=== PATIENT | female | born 1970 | race Caucasian/White ===

== ENCOUNTER 2017-11-29 11:17 | Emergency (ER) | payer OTHER ==
[2017-11-29 11:29] VITALS: BMI 43.0
[2017-11-29 11:33] VITALS: RESP 18
[2017-11-29 12:49] LABS: HCG,QUALITATIVE URINE NEGATIVE (NEGATIVE)
[2017-11-29 13:00] LABS: SQUAMOUS EPITHIAL 10 /hpf (0-5); URINE BILIRUBIN NEGATIVE (NEGATIVE); URINE BLOOD 1+ (NEGATIVE); URINE CLARITY Clear (Clear); URINE COLOR Straw (YELLOW); URINE GLUCOSE (UA) NORMAL (Normal); URINE LEUKOCYTE ESTERASE NEG Leu/uL (Negative); URINE PROTEIN NEGATIVE (NEGATIVE); URINE UROBILINOGEN NORMAL mg/dL (0.2-1.0)
[2017-11-29] MEDS ORDERED: DiphenhydrAMINE 50 mg/ml Inj IVP STA (13:07)
[2017-11-29] MEDS ORDERED: Sodium Chloride 0.9% 1,000 ML IV STA (13:07)
--- NOTE | 2017-11-29 13:14 | C.PDOC ---
History Of Present Illness 46 y/o F p/w headache x 14 hours, bitemperal, like pounding, associated with N/ V x 8, nonbloody. Reports photophobia as well. States has had headaches like these in the past as well but has never followed up. She also reports L arm pain /numbness that has been intermittent x 1 month. She states this is not why she came to hospital today but decided to mention it. Denies trauma, injury, fever, stiff neck. Time Seen by Provider: 11/29/17 12:54 Chief Complaint (Nursing): GI Problem Past Medical History Vital Signs: Last Vital Signs Temp 98.8 F 11/29/17 15:09 Pulse 69 11/29/17 15:09 Resp 18 11/29/17 15:09 BP 95/57 L 11/29/17 15:09 Pulse Ox 99 11/29/17 15:09 - Medical History PMH: Depression, HTN Family History: States: Unknown Family Hx - Social History Hx Tobacco Use: No Hx Alcohol Use: No Hx Substance Use: No - Immunization History Hx Tetanus Toxoid Vaccination: No Hx Influenza Vaccination: No Hx Pneumococcal Vaccination: No Review Of Systems Except As Marked, All Systems Reviewed And Found Negative. Constitutional: Negative for: Fever Cardiovascular: Negative for: Chest Pain Physical Exam - Physical Exam Additional Physical Exam Comments: Gen: NAD Head: NC/AT Eyes: PERRL, EOMI ENT: MMM Neck: No rigidity Chest: no tenderness CV: Regular rate Lungs: CTA b/l Abd: Soft, NT Skin: No rash Extremities: No tenderness or swelling Neuro: Alert, no focal deficit. Motor 5/5 x 4. Sensation to light touch intact bilaterally. ED Course And Treatment O2 Sat by Pulse Oximetry: 98 Medical Decision Making Medical Decision Making: Likely primary headache, migraine likely, treat symptomatically and reassess. CT Head. Arm symptoms consistent with cervical radiculopathy. IMPRESSION: Normal CT of Head. Patient states she feels much better after treatment. Will discharge home, f/u PMD for cervical radiculopathy and neurology for headaches. Instructed to return for worsening pain, fever, stiff neck, chest pain, or any other problem. Disposition - Disposition Referrals: at [facility] [Outside] Disposition: HOME/ ROUTINE Disposition Time: 15:58 Condition: STABLE Prescriptions: Acetaminophen [Tylenol 325mg tab] 2 tab PO Q4H #30 tab DiphenhydrAMINE [Benadryl] 2 cap PO Q8 #25 cap Famotidine [Pepcid] 1 tab PO BID #14 tab Ibuprofen [Motrin] 600 mg PO Q6 #25 tab Instructions: Headache, Adult (DC), Migraine Headaches in Adults, Radiculopathy Forms: [facility] (Surinamese) - Clinical Impression Clinical Impression: Headache
[2017-11-29] MEDS ORDERED: Sodium Chloride 0.9% 1,000 ML ONE (13:57)
--- NOTE | 2017-11-29 14:18 | CT ---
PROCEDURE: CT HEAD WITHOUT CONTRAST. HISTORY: headache, vomiting COMPARISON: None available. TECHNIQUE: Axial computed tomography images were obtained through the head/brain without intravenous contrast. Radiation dose: Total exam DLP = 1094 mGy-cm. This CT exam was performed using one or more of the following dose reduction techniques: Automated exposure control, adjustment of the mA and/or kV according to patient size, and/or use of iterative reconstruction technique. FINDINGS: HEMORRHAGE: No intracranial hemorrhage. BRAIN: No mass effect or edema. No atrophy or chronic microvascular ischemic changes. VENTRICLES: Unremarkable. No hydrocephalus. CALVARIUM: Unremarkable. PARANASAL SINUSES: Unremarkable as visualized. No significant inflammatory changes. MASTOID AIR CELLS: Unremarkable as visualized. No inflammatory changes. OTHER FINDINGS: None. IMPRESSION: Normal CT of the Head.
[2017-11-29] MEDS ORDERED: DiphenhydrAMINE 50 mg/ml Inj ONE (14:36)
[2017-11-29 16:31] VITALS: BP 99/64; PULSE 63; TEMP 98.1; O2SAT 99
== END 2017-11-29 16:25 | disposition home or self-care (01) ==
LOC: C.ER 11:17
DX: R51 Headache (principal)
CPT/HCPCS: 70450; 81001; 84703; 96374; 96375; 99285; J1200; J1885; J2765; J7040

== ENCOUNTER 2018-03-14 18:01 | Emergency (ER) | payer OTHER ==
[2018-03-14 18:02] VITALS: BMI 43.0
[2018-03-14 18:21] VITALS: BP 101/64; PULSE 71; RESP 20; TEMP 98; O2SAT 98
--- NOTE | 2018-03-14 20:03 | C.PDOC ---
History Of Present Illness 47 y/o female with history of high blood pressure presents to ED c/o pruritic rash on right arm that she first noticed 2 days ago. Patient denies fevers, numbness weakness, tingling. Time Seen by Provider: 03/14/18 19:03 Chief Complaint (Nursing): Abnormal Skin Integrity History Per: Patient History/Exam Limitations: no limitations Onset/Duration Of Symptoms: Days Current Symptoms Are (Timing): Still Present Quality Of Symptoms: Itching Past Medical History Vital Signs: Last Vital Signs Temp 98.0 F 03/14/18 18:18 Pulse 71 03/14/18 18:18 Resp 20 03/14/18 18:18 BP 101/64 03/14/18 18:18 Pulse Ox 98 03/20/18 12:32 - Medical History PMH: Depression, HTN Surgical History: No Surg Hx Family History: States: No Known Family Hx - Social History Hx Tobacco Use: No Hx Alcohol Use: No Hx Substance Use: No - Immunization History Hx Tetanus Toxoid Vaccination: No Hx Influenza Vaccination: No Hx Pneumococcal Vaccination: No Review Of Systems Constitutional: Negative for: Fever Skin: Positive for: Rash Physical Exam - Physical Exam Appears: Non-toxic, No Acute Distress Skin: Rash (6cm round area noted to right elbow, erythematous base with few bullous lesions and vesicular erythematous lesions with small patches with erythematous base with overlying vesicular lesions noted to right upper posterior arm and one pach on right back. ) Neck: Supple Chest: Symmetrical Cardiovascular: Rhythm Regular Respiratory: Normal Breath Sounds Back: Other (+ area of vesicular, erythematous lesion noted to right upper back ; consistent with shingles.) Neurological/Psych: Oriented x3, Normal Speech, Normal Cognition ED Course And Treatment O2 Sat by Pulse Oximetry: 98 (RA) Pulse Ox Interpretation: Normal Medical Decision Making Medical Decision Making: Impression: shingles Plan * Discussed with patient that rash is consistent with shingles. Patient prescribed acyclovir and instructed to take medications as prescribed. Patient also instructed to follow up with primary care doctor in 2-3 days. Disposition Counseled Patient/Family Regarding: Diagnosis, Need For Followup, Rx Given - Disposition Referrals: [facility] [Outside] Disposition: HOME/ ROUTINE Disposition Time: 20:17 Condition: GOOD Additional Instructions: Por favor tome los medicamentos segn lo recetado. [place] puede ser contagioso para mujeres embarazadas o cualquier otra persona que nunca haya tenido varicela de marion. Mantenga el brazo ligeramente cubierto para que los fluidos de las ampollas no toquen a nadie. Seguimiento en la clnica mdica en 1-2 santiago sin falta. Regrese a la santi de emergencias para sntomas peores, fiebre o cualquier otra inquietud. Please take medications as prescribed. THis can be contagious to women or anyone else who never had chickenpox as a child. Keep arm lightly covered so no fluids from blisters touches anyone. Follow up in medical clinic in 1-2 days without fail. Return to ER for nay worse symptoms, fever or any other concerns. Prescriptions: Acyclovir [Zovirax] 800 mg PO Q4 #50 tablet Amoxicillin/Clavulanate [Augmentin 875 MG-125 MG] 1 tab PO BID #20 tab Instructions: Alicia (DC) Forms: Gen Discharge Inst Kiswahili, [employer] (Kiswahili) Print Language: BELARUSIAN - Clinical Impression Clinical Impression: Alicia - PA / [employer] / Resident Statement MD/DO has reviewed & agrees with the documentation as recorded. - Scribe Statement The provider has reviewed the documentation as recorded by the Scribe Josiah Zafar All medical record entries made by the Scribe were at my direction and personally dictated by me. I have reviewed the chart and agree that the record accurately reflects my personal performance of the history, physical exam, medical decision making, and the department course for this patient. I have also personally directed, reviewed, and agree with the discharge instructions and disposition.
[2018-03-14] MEDS ORDERED: Amoxicillin-Clav 875-125 mg Tab PO STA (20:16)
[2018-03-14] MEDS ORDERED: Amoxicillin-Clav 875-125 mg Tab PO ONE (20:25)
== END 2018-03-14 20:36 | disposition home or self-care (01) ==
LOC: C.ER 18:01
DX: B02.9 Zoster without complications (principal)